=== PATIENT | female | born 1980 | race Caucasian/White ===

== ENCOUNTER 2017-03-19 12:50 | Inpatient (IN) | payer OTHER ==
[~2017-03-19] VITALS: Ht 165.1 cm; Wt 63.6 kg
[2017-03-19] MEDS ORDERED: HYDROmorphone 1 mg/ml syringe IV ONE ×3 (13:45→14:25)
[2017-03-19] MEDS ORDERED: normal saline 1000ML IV soln IVB ONE (13:45)
[2017-03-19] MEDS ORDERED: ondansetron/PF 4mg/2ml inj IV ONE (13:45)
[2017-03-19 14:14] LABS: BASOPHILS # (AUTO) 0.1 X10'3 (0-0.2); BASOPHILS % (AUTO) 0.8 % (0-1); EOSINOPHILS # (AUTO) 0.2 X10'3 (0-0.9); EOSINOPHILS % (AUTO) 1.2 % (0-6); HEMATOCRIT 40.8 % (35.0-45.0); HEMOGLOBIN 14.4 g/dl (12.0-16.0); LYMPHOCYTES # (AUTO) 1.7 X10'3 (1.1-4.8); LYMPHOCYTES % (AUTO) 11.1 % (21-51); MEAN CORPUSCULAR HEMOGLOBIN 32.1 PG (27.0-31.0); MEAN CORPUSCULAR HGB CONC 35.1 % (33.0-36.5); MEAN CORPUSCULAR VOLUME 91.3 FL (78-98); MEAN PLATELET VOLUME 9.1 FL (7.4-10.4); MONOCYTES # (AUTO) 1.1 X10'3 (0-0.9); MONOCYTES % (AUTO) 7.2 % (2-12); NEUTROPHILS # (AUTO) 12.4 X10'3 (1.8-7.7); NEUTROPHILS % (AUTO) 79.7 % (42-75); PLATELET COUNT 246 X10'3 (140-440); RED BLOOD COUNT 4.47 X10'6 (4.20-5.60); RED CELL DISTRIBUTION WIDTH 12.4 % (11.5-14.5); WHITE BLOOD COUNT 15.6 X10'3 (4.5-11.0)
[2017-03-19 14:19] LABS: CLARITY,URINE Clear (Clear); COLOR,URINE Yellow (Yellow); GLUCOSE, URINE Negative (Neg); KETONES,URINE 40 mg/dl (Neg); LEUKOCYTE ESTERASE ,URINE Trace (Neg); NITRITES, URINE Negative (Neg); OCCULT BLOOD,URINE Negative (Neg); PROTEIN,URINE Negative (Neg)
[2017-03-19 14:23] LABS: PROTHROMBIN TIME 9.9 SECONDS (9.0-12.0)
[2017-03-19] MEDS ORDERED: HYDROmorphone 2mg/ml vial IV ONE ×2 (14:25→14:30)
[2017-03-19 14:28] LABS: ANION GAP 11 (8-16); BILIRUBIN,TOTAL 1.2 MG/DL (0.1-1.0); BLOOD UREA NITROGEN 14 MG/DL (7-18); BUN/CREATININE RATIO 17.5 (6.6-38.0); CALCIUM 9.6 MG/DL (8.5-10.1); CHLORIDE 101 MMOL/L (99-107); GLUCOSE 111 MG/DL (70-104); POTASSIUM 3.6 MMOL/L (3.5-5.1); SODIUM 137 MMOL/L (135-145); TOTAL CARBON DIOXIDE 25.3 MMOL/L (24-32); eGFR 80 ML/MIN
[2017-03-19 14:29] LABS: ALANINE AMINOTRANSFERASE 224 U/L (12-78); ALBUMIN 4.3 G/DL (3.4-5.0); ALBUMIN/GLOBULIN RATIO 1.2 (1.1-1.5); ALKALINE PHOSPHATASE 135 IU/L (46-116); ASPARTATE AMINO TRANSFERASE 445 U/L (10-37); TOTAL PROTEIN 7.8 G/DL (6.4-8.2)
[2017-03-19 14:29] LABS: UA COLLECTION TYPE CLN CATCH MIDSTREAM
[2017-03-19 14:30] LABS: BACTERIA,URINE NONE SEEN /HPF (Neg); MUCUS STRANDS NONE SEEN /LPF (Neg); RBC,URINE NONE SEEN /HPF (0-2); SQUAMOUS EPITHELIAL CELL,UR FEW /LPF (FEW); WBC,URINE 0-4 /HPF (0-4)
[2017-03-19 14:55] LABS: LIPASE 123 U/L (73-393)
[2017-03-19 15:34] LABS: URINE HCG NEGATIVE (NEG)
[2017-03-19] MEDS ORDERED: potassium Cl 40MEQ/NS 500ml 500 ML IV PRN ×2 (18:05)
[2017-03-19] MEDS ORDERED: morphine 2 MG/ML inj. syringe IV PRN (18:05)
[2017-03-19] MEDS ORDERED: piperacillin/tazo 3.375gm/50ml 50 ML IV ONE (18:05)
[2017-03-19] MEDS ORDERED: ondansetron/PF 4mg/2ml inj IV PRN (18:05)
[2017-03-19] MEDS ORDERED: magnesium hydroxide 30ml (MOM) UD suspension PO PRN (18:05)
[2017-03-19] MEDS ORDERED: magnesium Cl slow-release 64mg tablet PO PRN (18:05)
[2017-03-19] MEDS ORDERED: acetaminophen 325mg tablet PO PRN (18:05)
[2017-03-19] MEDS ORDERED: magnesium 2GM in 50ml NS 50 ML IV PRN (18:05)
[2017-03-19] MEDS ORDERED: magnesium 4gm in 100ml NS 100 ML IV PRN (18:05)
[2017-03-19] MEDS ORDERED: mag hydrox/Alum hydrox/simeth 30ml oral suspension PO PRN (18:05)
[2017-03-19] MEDS ORDERED: potassium Cl 20 mEq SR tablet PO PRN ×2 (18:05)
[2017-03-19] MEDS: dextrose 5%-1/2 normal saline 1,000 ML IV SCH (18:32)
[2017-03-19] MEDS: piperacillin/tazo 3.375gm/50ml 50 ML IV SCH (20:00)
[2017-03-19 20:15] VITALS: BP 109/74
[2017-03-19] MEDS ORDERED: NO HOME MEDS (21:30)
[2017-03-20] VITALS (17 sets, daily range): BP systolic 85–119; BP diastolic 48–80
[2017-03-20] MEDS: piperacillin/tazo 3.375gm/50ml 50 ML IV SCH ×4 (02:06→20:33)
[2017-03-20] MEDS: dextrose 5%-1/2 normal saline 1,000 ML IV SCH (04:35)
[2017-03-20 05:02] LABS: BASOPHILS % (AUTO) 0.6 % (0-1); EOSINOPHILS # (AUTO) 0.1 X10'3 (0-0.9); EOSINOPHILS % (AUTO) 2.2 % (0-6); HEMATOCRIT 36.9 % (35.0-45.0); HEMOGLOBIN 12.7 g/dl (12.0-16.0); LYMPHOCYTES # (AUTO) 1.5 X10'3 (1.1-4.8); LYMPHOCYTES % (AUTO) 23.1 % (21-51); MEAN CORPUSCULAR HEMOGLOBIN 31.4 PG (27.0-31.0); MEAN CORPUSCULAR HGB CONC 34.5 % (33.0-36.5); MEAN PLATELET VOLUME 9.2 FL (7.4-10.4); MONOCYTES # (AUTO) 0.7 X10'3 (0-0.9); MONOCYTES % (AUTO) 10.7 % (2-12); NEUTROPHILS # (AUTO) 4.2 X10'3 (1.8-7.7); NEUTROPHILS % (AUTO) 63.4 % (42-75); PLATELET COUNT 215 X10'3 (140-440); RED BLOOD COUNT 4.05 X10'6 (4.20-5.60); RED CELL DISTRIBUTION WIDTH 12.6 % (11.5-14.5); WHITE BLOOD COUNT 6.7 X10'3 (4.5-11.0)
[2017-03-20 06:00] LABS: ALBUMIN 3.3 G/DL (3.4-5.0); ALBUMIN/GLOBULIN RATIO 1.1 (1.1-1.5); ALKALINE PHOSPHATASE 155 IU/L (46-116); ANION GAP 7 (8-16); BILIRUBIN,TOTAL 1.2 MG/DL (0.1-1.0); BLOOD UREA NITROGEN 7 MG/DL (7-18); BUN/CREATININE RATIO 8.8 (6.6-38.0); CALCIUM 8.5 MG/DL (8.5-10.1); CHLORIDE 109 MMOL/L (99-107); GLUCOSE 106 MG/DL (70-104); MAGNESIUM 2.2 MG/DL (1.5-2.4); POTASSIUM 3.6 MMOL/L (3.5-5.1); SODIUM 143 MMOL/L (135-145); TOTAL CARBON DIOXIDE 26.8 MMOL/L (24-32); TOTAL PROTEIN 6.3 G/DL (6.4-8.2); eGFR 80 ML/MIN
[2017-03-20 06:17] LABS: ASPARTATE AMINO TRANSFERASE 1037 U/L (10-37)
[2017-03-20 06:25] LABS: ALANINE AMINOTRANSFERASE 1006 U/L (12-78)
[2017-03-20] MEDS: K and/or MAG REPLACEMENT MC SCH (06:58)
[2017-03-20] MEDS ORDERED: meperidine/PF 100mg/ml syringe ONE (07:43)
[2017-03-20] MEDS ORDERED: fentaNYL/PF 50MCG/1 ML 2ML syringe ONE (07:44)
[2017-03-20] MEDS ORDERED: MIDAZolam 1mg/ml 10ml vial ONE (07:44)
[2017-03-20] MEDS ORDERED: diphenhydrAMINE 50 mg/ml inj ONE (07:44)
[2017-03-20] MEDS ORDERED: iohexol 300 MG/1 ML 50ml polymer ONE (07:45)
[2017-03-20] MEDS ORDERED: glucagon, human recombinant 1mg kit ONE (07:45)
[2017-03-20] MEDS ORDERED: LIDOcaine Viscous 15ml cup ONE (07:45)
[2017-03-20] MEDS ORDERED: levoFLOXACIN-Levaquin 500mg/D5 0 ML IV ONE (07:45)
[2017-03-20] MEDS ORDERED: normal saline 1000ml 1,000 ML IV SCH (08:27)
[2017-03-20] MEDS ORDERED: simethicone 40mg/0.6ml oral drops 30ml MC ONE (08:30)
[2017-03-20] MEDS ORDERED: diphenhydrAMINE 50 mg/ml inj IV ONE (08:30)
[2017-03-20] MEDS ORDERED: meperidine/PF 100mg/ml syringe IV PRN (08:30)
[2017-03-20] MEDS ORDERED: glucagon, human recombinant 1mg kit IV PRN (08:30)
[2017-03-20] MEDS ORDERED: MIDAZolam 5mg/5ml vial IV PRN (08:30)
[2017-03-20] MEDS ORDERED: iohexol 300 MG/1 ML 50ml polymer IV ONE (08:30)
[2017-03-20] MEDS ORDERED: fentaNYL/PF 50MCG/1 ML 2ML syringe IV PRN (08:30)
[2017-03-20] MEDS ORDERED: LIDOcaine Viscous 15ml cup PO ONE (08:30)
[2017-03-20] MEDS: ringers solution, lactated 500ml IV solution IV ONE ×2 (11:25→12:05)
[2017-03-20] MEDS: ringers solution, lacted 1,000 ML IV SCH ×2 (12:10→17:30)
[2017-03-20] MEDS ORDERED: ceFAZolin 2gm in dextrose, iso 100 ML IV ONE (13:00)
[2017-03-20] MEDS: morphine 2 MG/ML inj. syringe IV PRN (22:39)
[2017-03-21] VITALS (16 sets, daily range): BP systolic 90–118; BP diastolic 54–78
[2017-03-21] MEDS: ringers solution, lacted 1,000 ML IV SCH ×2 (00:14→10:00)
[2017-03-21] MEDS: piperacillin/tazo 3.375gm/50ml 50 ML IV SCH ×4 (01:12→20:27)
[2017-03-21 05:31] LABS: BASOPHILS % (AUTO) 0.4 % (0-1); EOSINOPHILS # (AUTO) 0.2 X10'3 (0-0.9); EOSINOPHILS % (AUTO) 2.5 % (0-6); HEMATOCRIT 33.5 % (35.0-45.0); HEMOGLOBIN 11.9 g/dl (12.0-16.0); LYMPHOCYTES # (AUTO) 1.7 X10'3 (1.1-4.8); LYMPHOCYTES % (AUTO) 22.4 % (21-51); MEAN CORPUSCULAR HEMOGLOBIN 31.7 PG (27.0-31.0); MEAN CORPUSCULAR HGB CONC 35.4 % (33.0-36.5); MEAN CORPUSCULAR VOLUME 89.7 FL (78-98); MONOCYTES # (AUTO) 0.6 X10'3 (0-0.9); MONOCYTES % (AUTO) 8.6 % (2-12); NEUTROPHILS % (AUTO) 66.1 % (42-75); PLATELET COUNT 185 X10'3 (140-440); RED BLOOD COUNT 3.74 X10'6 (4.20-5.60); RED CELL DISTRIBUTION WIDTH 12.6 % (11.5-14.5); WHITE BLOOD COUNT 7.6 X10'3 (4.5-11.0)
[2017-03-21 06:12] LABS: ALANINE AMINOTRANSFERASE 592 U/L (12-78); ALBUMIN/GLOBULIN RATIO 1.1 (1.1-1.5); ALKALINE PHOSPHATASE 127 IU/L (46-116); ANION GAP 7 (8-16); ASPARTATE AMINO TRANSFERASE 286 U/L (10-37); BILIRUBIN,TOTAL 0.7 MG/DL (0.1-1.0); BLOOD UREA NITROGEN 8 MG/DL (7-18); BUN/CREATININE RATIO 11.4 (6.6-38.0); CALCIUM 8.3 MG/DL (8.5-10.1); CHLORIDE 110 MMOL/L (99-107); GLUCOSE 96 MG/DL (70-104); MAGNESIUM 1.9 MG/DL (1.5-2.4); POTASSIUM 3.6 MMOL/L (3.5-5.1); SODIUM 143 MMOL/L (135-145); TOTAL CARBON DIOXIDE 25.6 MMOL/L (24-32); TOTAL PROTEIN 5.8 G/DL (6.4-8.2); eGFR > 90 ML/MIN
[2017-03-21] MEDS ORDERED: ceFAZolin 2gm in dextrose, iso 100 ML IV ONE (07:00)
[2017-03-21] MEDS ORDERED: BUPIVAcaine/PF 2.5 mg/ml (0.25%) 30ml vial ONE ×2 (07:06→08:31)
[2017-03-21] MEDS ORDERED: LIDOcaine 1% 30ml vial 30 ML ONE ×2 (07:13→08:31)
[2017-03-21] MEDS ORDERED: ringers solution, lacted 1,000 ML IV SCH ×2 (07:29)
[2017-03-21] MEDS ORDERED: morphine 2 MG/ML inj. syringe IV PRN ×4 (07:30)
[2017-03-21] MEDS ORDERED: meperidine/PF 25mg/ml syringe IV PRN ×6 (07:30)
[2017-03-21] MEDS ORDERED: proCHLORperazine 10 MG/2 ml inj IV PRN ×2 (07:30)
[2017-03-21] MEDS ORDERED: ondansetron/PF 4mg/2ml inj IV PRN ×2 (07:30)
[2017-03-21] MEDS ORDERED: neostigmine methylsulfate 1 MG/ML 10ml vial ONE (07:55)
[2017-03-21] MEDS ORDERED: sevoflurane 250ml liquid IH ONE (07:55)
[2017-03-21] MEDS ORDERED: glycopyrrolate 0.2mg/ml inj ONE ×2 (07:55)
[2017-03-21] MEDS ORDERED: dexamethasone sod phosphate 4mg/ml inj. ONE (07:55)
[2017-03-21] MEDS: K and/or MAG REPLACEMENT MC SCH (08:00)
[2017-03-21] MEDS ORDERED: midazolam 2 mg/2 ml injection ONE (08:02)
[2017-03-21] MEDS ORDERED: fentaNYL/PF 50MCG/1 ML 2ML syringe ONE (08:02)
[2017-03-21] MEDS ORDERED: LIDOcaine 1%/PF (10mg/ml) 5ml vial ONE (08:07)
[2017-03-21] MEDS ORDERED: propofol inj 20 ML IV ONE (08:07)
[2017-03-21] MEDS ORDERED: rocuronium 10mg/ml inj IV ONE (08:08)
[2017-03-21] MEDS ORDERED: ketorolac trometh. 30mg/ml inj. ONE (08:15)
[2017-03-21] MEDS ORDERED: ondansetron/PF 4mg/2ml inj ONE (08:15)
[2017-03-21] MEDS ORDERED: LIDOcaine 1% 30ml vial IJ ONE (08:38)
[2017-03-21] MEDS ORDERED: HYDROcodone/acetaminophen 5mg/325mg tablet PO PRN (09:30)
[2017-03-21] MEDS ORDERED: HYDROcodone/acetaminophen 10/325mg tab PO ONE (10:00)
[2017-03-21] MEDS: morphine 2 MG/ML inj. syringe IV PRN (11:57)
[2017-03-21] MEDS: HYDROcodone/acetaminophen 10/325mg tab PO PRN ×2 (14:53→20:31)
[2017-03-21] MEDS ORDERED: HYDROmorphone 2mg/ml vial IV ONE (17:15)
[2017-03-21] MEDS: ketorolac trometh. 30mg/ml inj. IV SCH ×3 (17:30→22:19)
[2017-03-21] MEDS: lactobacillus rhamnosus 10,000 MMU CELLS/CAPSULE PO SCH (17:33)
[2017-03-21] MEDS: dextrose 5%-1/2 normal saline 1,000 ML IV SCH (20:03)
[2017-03-22] MEDS: piperacillin/tazo 3.375gm/50ml 50 ML IV SCH ×2 (01:54→07:14)
[2017-03-22] MEDS: HYDROcodone/acetaminophen 10/325mg tab PO PRN ×2 (01:55→07:13)
[2017-03-22] MEDS: dextrose 5%-1/2 normal saline 1,000 ML IV SCH (01:58)
[2017-03-22] MEDS: ketorolac trometh. 30mg/ml inj. IV SCH ×2 (04:24→11:35)
[2017-03-22 04:42] LABS: BASOPHILS # (AUTO) 0.1 X10'3 (0-0.2); BASOPHILS % (AUTO) 0.6 % (0-1); EOSINOPHILS # (AUTO) 0.2 X10'3 (0-0.9); EOSINOPHILS % (AUTO) 1.8 % (0-6); HEMOGLOBIN 10.8 g/dl (12.0-16.0); LYMPHOCYTES # (AUTO) 2.5 X10'3 (1.1-4.8); LYMPHOCYTES % (AUTO) 28.1 % (21-51); MEAN CORPUSCULAR HEMOGLOBIN 31.8 PG (27.0-31.0); MEAN CORPUSCULAR HGB CONC 34.8 % (33.0-36.5); MEAN CORPUSCULAR VOLUME 91.5 FL (78-98); MONOCYTES # (AUTO) 0.8 X10'3 (0-0.9); MONOCYTES % (AUTO) 9.2 % (2-12); NEUTROPHILS # (AUTO) 5.4 X10'3 (1.8-7.7); NEUTROPHILS % (AUTO) 60.3 % (42-75); PLATELET COUNT 175 X10'3 (140-440); RED BLOOD COUNT 3.39 X10'6 (4.20-5.60); RED CELL DISTRIBUTION WIDTH 12.7 % (11.5-14.5); WHITE BLOOD COUNT 8.9 X10'3 (4.5-11.0)
[2017-03-22 05:26] LABS: ALANINE AMINOTRANSFERASE 366 U/L (12-78); ALBUMIN 2.7 G/DL (3.4-5.0); ALBUMIN/GLOBULIN RATIO 0.9 (1.1-1.5); ALKALINE PHOSPHATASE 113 IU/L (46-116); ANION GAP 8 (8-16); ASPARTATE AMINO TRANSFERASE 112 U/L (10-37); BILIRUBIN,TOTAL 0.4 MG/DL (0.1-1.0); BLOOD UREA NITROGEN 5 MG/DL (7-18); BUN/CREATININE RATIO 6.3 (6.6-38.0); CALCIUM 7.9 MG/DL (8.5-10.1); CHLORIDE 106 MMOL/L (99-107); GLUCOSE 125 MG/DL (70-104); MAGNESIUM 1.8 MG/DL (1.5-2.4); POTASSIUM 3.2 MMOL/L (3.5-5.1); SODIUM 141 MMOL/L (135-145); TOTAL CARBON DIOXIDE 26.9 MMOL/L (24-32); TOTAL PROTEIN 5.6 G/DL (6.4-8.2); eGFR 80 ML/MIN
[2017-03-22 06:52] VITALS: BP 104/58
[2017-03-22] MEDS: lactobacillus rhamnosus 10,000 MMU CELLS/CAPSULE PO SCH (07:13)
[2017-03-22] MEDS: K and/or MAG REPLACEMENT MC SCH (08:00)
[2017-03-22 11:00] VITALS: BP 101/68
[2017-03-23 11:13] LABS: HBSAG SCREEN Negative (Negative); HEP A AB, IGM Negative (Negative); HEP B CORE AB, IGM Negative (Negative); HEPATITIS C ANTIBODY 0.2 s/co ratio (0.0-0.9)
== END 2017-03-22 11:53 | disposition home or self-care (01) | DRG 419 ==
LOC: ER 12:51 → ED HOLD 18:07 → EDBEDREQ 19:49 → SUR 3N 20:15
PROVIDERS: ADMIT Legal Medicine; ATTEND Legal Medicine
PROC: 0F798DZ Dilation of Common Bile Duct with Intraluminal Device, Via Natural or Artificial Opening Endoscopic (ICD-10-PCS; 2017-03-20)
PROC: 0FC98ZZ Extirpation of Matter from Common Bile Duct, Via Natural or Artificial Opening Endoscopic (ICD-10-PCS; 2017-03-20)
PROC: 0FT44ZZ Resection of Gallbladder, Percutaneous Endoscopic Approach (ICD-10-PCS; principal; 2017-03-21 07:55)
DX: K80.63 Calculus of gallbladder and bile duct with acute cholecystitis with obstruction (principal); M54.9 Dorsalgia, unspecified; R74.0 Nonspecific elevation of levels of transaminase and lactic acid dehydrogenase [LDH]; Z72.89 Other problems related to lifestyle
CPT/HCPCS: 43274; 96361; 96374; 96375; 99285; Z7506; 36415; 76700; 80053; 80074; 80329; 81001; 81025; 83690; 83735; 85025; 85610; 87070; 87088; 93975; A4620; A7000; G0500; J0690; J1100; J1170; J1200; J1610; J1885; J1956; J2001; J2175; J2250; J2270; J2405; J2543; J2704; J2710; J3010; J3490; J7030; J7120; Q9967